=== PATIENT | male | born 1940 ===

== ENCOUNTER 2018-06-19 06:00 | Day surgery (SDC) | payer OTHER ==
[~2018-06-19 06:00] MED LIST: GLYCOTROL CAPS1 EACH PO
== END 2018-06-19 10:25 | disposition home or self-care (01) ==
LOC: AMB-ENDOS 06:00 → EDBD 12:45 → AMB-ENDOS 12:45
DX: D12.7 Benign neoplasm of rectosigmoid junction (principal)

== ENCOUNTER 2024-12-17 12:33 | Outpatient (CLI) | payer OTHER | END 2024-12-17 12:34 | disposition home or self-care (01) | LOC: NUCLEAR 12:33 | DX: M81.0 Age-related osteoporosis without current pathological fracture (principal) ==